=== PATIENT | female | born 1970 | race American Indian/Alaskan Native ===

== ENCOUNTER 2018-03-21 11:48 | Emergency (ER) | payer SELFPAY ==
[2018-03-21] MEDS ORDERED: NORVASC PO ONE (13:13)
--- NOTE | 2018-03-21 13:16 | Emergency Department Report ---
ED General Adult HPI - General Chief complaint: High BP Stated complaint: EYE BLURRY/HYPERTENTION Time Seen by Provider: 03/21/18 12:56 Source: patient, EMS (ems notes not available at time of chart dictation), RN notes reviewed Mode of arrival: Wheelchair Limitations: Physical Limitation - History of Present Illness Initial comments: This is a 47-year-old female, not known to this provider previously, recently moved here from [place], reports a history of obesity, hypertension, diabetes, and left-sided foot drop 1 year. The patient presents to the ER with a primary complaint of painless left-sided loss of peripheral vision, present for 3-4 weeks. To me, denies sudden or thunderclap headache, neck pain, chest pain, abdominal pain, shortness of breath. Has chronic left-sided foot drop, and resultant left intermittent knee discomfort. This foot drop is present for over a year, and she reports that it was evaluated in [place] with x-rays and an MRI. She believes the results of these tests were "negative." She reports that she has access to her blood pressure medication, valsartan, 40 mg daily, as well as Lantus, and reports sporadic compliance. She specifically indicates that she does not need a refill. Visual symptoms are constant, painless, do not radiate anywhere, did not have exacerbating or relieving factors. She reports that she applied for Medicaid insurance about a month ago, and was told that it would take 30-45 days for her insurance to kick in. -: Gradual, week(s) Location: eyes (left) Radiation: non-radiation Consistency: constant Improves with: none Worsens with: none Associated Symptoms: weakness (chronic left-sided foot drop). denies: confusion, chest pain, cough, diaphoresis, fever/chills, loss of appetite, malaise, nausea/vomiting, rash, seizure, shortness of breath, syncope - Related Data Home Medications Medication Instructions Recorded Confirmed Last Taken Insulin Glargine,Hum.rec.anlog 50 unit SQ HS 03/21/18 03/21/18 Unknown [Lantus] Valsartan [Diovan] 40 mg PO DAILY 03/21/18 03/21/18 Unknown Allergies Allergy/AdvReac Type Severity Reaction Status Date / Time Penicillins Allergy Rash Verified 01/12/19 12:20 ED Review of Systems ROS: Stated complaint: EYE BLURRY/HYPERTENTION Other details as noted in HPI Constitutional: denies: malaise Eyes: vision change. denies: eye pain ENT: denies: ear pain Respiratory: denies: cough Cardiovascular: denies: chest pain Gastrointestinal: denies: abdominal pain Genitourinary: denies: dysuria Musculoskeletal: arthralgia. denies: back pain Neurological: abnormal gait (chronic left-sided foot drop 1 year). denies: weakness Psychiatric: anxiety ED Past Medical Hx - Past Medical History Previous Medical History?: Yes Hx Hypertension: Yes Hx Diabetes: Yes Additional medical history: high cholesterol - Surgical History Past Surgical History?: No - Social History Smoking Status: Never Smoker Substance Use Type: Alcohol - Medications Home Medications: Home Medications Medication Instructions Recorded Confirmed Last Taken Type Insulin Glargine,Hum.rec.anlog 50 unit SQ HS 03/21/18 03/21/18 Unknown History [Lantus] Valsartan [Diovan] 40 mg PO DAILY 03/21/18 03/21/18 Unknown History ED Physical Exam - General Limitations: Physical Limitation General appearance: alert, anxious, obese - Head Head exam: Present: atraumatic, normocephalic - Eye Eye exam: Present: normal appearance, PERRL, EOMI, other (visual acuity intact to finger counting, color perception, reading at a close distance). Absent: nystagmus - ENT ENT exam: Present: normal exam, normal orophraynx, mucous membranes moist, normal external ear exam - Neck Neck exam: Present: normal inspection, full ROM. Absent: tenderness, meningismus - Respiratory Respiratory exam: Present: normal lung sounds bilaterally. Absent: respiratory distress - Cardiovascular Cardiovascular Exam: Present: regular rate, normal rhythm, normal heart sounds. Absent: bradycardia, tachycardia, irregular rhythm, systolic murmur, diastolic murmur, rubs, gallop - GI/Abdominal GI/Abdominal exam: Present: soft. Absent: distended, tenderness, guarding, rebound, rigid, pulsatile mass - Extremities Exam Extremities exam: Present: normal inspection, full ROM, other (2+ pulses noted in the bilateral upper, lower extremities. Compartments soft. No long bony tenderness. The pelvis is stable.). Absent: calf tenderness - Back Exam Back exam: Present: normal inspection, full ROM. Absent: tenderness, CVA tenderness (R), paraspinal tenderness, vertebral tenderness - Neurological Exam Neurological exam: Present: alert, oriented X3, abnormal gait (the patient walks with a slight limp secondary to chronic left-sided foot drop), motor sensory deficit (5 and a 5 strength, intact, to 4 extremities, with the exception of left foot flexion and extension. 3 out of 5 strength in these modalities in the left foot. Sensation intact to light touch in 4 extremities) - Psychiatric Psychiatric exam: Present: anxious - Skin Skin exam: Present: warm, dry, intact, normal color. Absent: rash ED Course Vital Signs 03/21/18 03/21/18 03/21/18 12:10 13:16 13:30 Temperature 98.5 F Pulse Rate 97 H 100 H Respiratory 20 15 Rate Blood Pressure 200/105 202/99 198/100 O2 Sat by Pulse 100 100 Oximetry 03/21/18 03/21/18 03/21/18 14:00 14:30 15:00 Temperature Pulse Rate 89 90 89 Respiratory 12 13 13 Rate Blood Pressure 189/93 179/92 179/92 O2 Sat by Pulse 100 100 100 Oximetry 03/21/18 15:30 Temperature Pulse Rate 89 Respiratory 14 Rate Blood Pressure 179/84 O2 Sat by Pulse 100 Oximetry ED Medical Decision Making - Lab Data Result diagrams: 03/21/18 13:22 Vital Signs 03/21/18 03/21/18 03/21/18 12:10 13:16 13:30 Temperature 98.5 F Pulse Rate 97 H 100 H Respiratory 20 15 Rate Blood Pressure 200/105 202/99 198/100 O2 Sat by Pulse 100 100 Oximetry 03/21/18 03/21/18 03/21/18 14:00 14:30 15:00 Temperature Pulse Rate 89 90 89 Respiratory 12 13 13 Rate Blood Pressure 189/93 179/92 179/92 O2 Sat by Pulse 100 100 100 Oximetry 03/21/18 15:30 Temperature Pulse Rate 89 Respiratory 14 Rate Blood Pressure 179/84 O2 Sat by Pulse 100 Oximetry Lab Results 03/21/18 Range/Units 13:22 Sodium 139 (137-145) mmol/L Potassium 3.7 (3.6-5.0) mmol/L Chloride 103.4 (98-107) mmol/L Carbon Dioxide 26 (22-30) mmol/L Anion Gap 13 mmol/L BUN 22 H (7-17) mg/dL Creatinine 1.2 (0.7-1.2) mg/dL Estimated GFR 59 ml/min BUN/Creatinine Ratio 18 % Glucose 307 H (65-100) mg/dL Calcium 8.5 (8.4-10.2) mg/dL Magnesium 1.70 (1.7-2.3) mg/dL Total Creatine Kinase 142 H (30-135) units/L - Radiology Data Radiology results: report reviewed, image reviewed Noncontrast CT scan of the brain is negative for acute disease - Medical Decision Making Differential diagnosis, including but not limited to: Chronic left-sided foot drop, diabetic retinopathy, hypertensive retinopathy, medication noncompliance Assessment and plan: 47-year-old female with primary complaint of left visual peripheral field deficits, only on the left eye, describes temporal and nasal decrease in maciel, visual acuity reviewed and appreciated, patient also has chronic left-sided foot drop. Foot drop present for 1 year. She can follow up with an outpatient primary care doctor or neurologist for this. Elevated blood pressure reviewed and appreciated. She may follow up with an outpatient primary care doctor for this. Given that visual symptoms present for 3 weeks, patient may follow-up with an outpatient parking officer. I have counseled the patient to remain compliant with her medications, and to closely follow-up and outpatient ophthalmology specialist for further evaluation and management. Critical care attestation.: If time is entered above; I have spent that time in minutes in the direct care of this critically ill patient, excluding procedure time. ED Disposition Clinical Impression: Elevated blood pressure reading, Visual disturbance, Foot drop, left Disposition: DC-01 TO HOME OR SELFCARE Is pt being admited?: No Does the pt Need Aspirin: No Condition: Good Additional Instructions: Follow-up with an ophthalmology specialist within the next 5-[address] Spicer is a local ophthalmology physician. Continue current outpatient medications. Follow up with the primary care doctor within the next month for elevated blood pressure, diabetes, and left-sided foot drop. Alternatively, patient may follow up with the listed neurology specialist within the next month for foot drop. Please return to the ER right away with lethargy, irritability, projectile vomiting, change in mental status, confusion, inability to speak, inability to breathe, new, worsening or different symptoms. I recommend the patient participate in physical activities as tolerated, attempt weight loss, and modified diets, in accordance with the [place] [employer]'s website recommendations on diabetic family diets (this can be looked up online) to facilitate weight loss, and improved health benefits. Long-term complications of elevated blood pressure and blood sugar include stroke, disability, heart attack, paralysis, loss of quality of life. Referrals: [facility] [Provider Group] - as needed JODI HUDSON MD [Staff Physician] - as needed HOLLIS LINARES MD [Staff Physician] - 7-10 days
[2018-03-21 13:51] LABS: Calcium 8.5 mg/dL (8.4-10.2)
--- NOTE | 2018-03-21 14:03 | Cat Scan Report ---
FINAL REPORT EXAM: CT HEAD/BRAIN WO CON HISTORY: high htn blurry vsision TECHNIQUE: CT of the head was performed. No intravenous contrast was administered. PRIORS: None. FINDINGS: There is no evidence of intracranial hemorrhage. There is no edema, mass effect or midline shift. There are no abnormal extra-axial fluid collections. The ventricles are appropriate for brain volume. There is no skull fracture seen. The visualized aspects of the sinuses are clear. IMPRESSION: There is no acute intracranial abnormality identified.
[2018-03-21 15:39] VITALS: BP 179/84
== END 2018-03-21 16:14 | disposition home or self-care (01) ==
LOC: ED 11:48
DX: H53.8 Other visual disturbances (principal); M21.372 Foot drop, left foot; I10 Essential (primary) hypertension; E11.9 Type 2 diabetes mellitus without complications; E78.00 Pure hypercholesterolemia, unspecified; Z79.4 Long term (current) use of insulin; Z88.0 Allergy status to penicillin
CPT/HCPCS: 36415; 70450; 80048; 82550; 83735

== ENCOUNTER 2018-04-16 21:01 | Emergency (ER) | payer SELFPAY ==
--- NOTE | 2018-04-16 21:28 | Emergency Department Report ---
Blank Doc - Documentation Documentation: 47 y.o. female presents with vaginal bleeding and pelvic cramping that started a few hours ago. LMP 04/06/2018. Patient reports she is passing large clots. Here period ended one week ago. Denies past history of abnormal uterine bleeding or menses. States changing 4 pads in 1-2 hours. Labs ordered [facility] for evaluation
[2018-04-16 22:14] LABS: Basophils % (Auto) 0.1 % (0.0-1.8); Eosinophils # (Auto) 0.1 K/mm3 (0.0-0.4); Eosinophils % (Auto) 0.5 % (0.0-4.3); Hematocrit 29.7 % (30.3-42.9); Hemoglobin 9.6 gm/dl (10.1-14.3); Lymphocytes % (Auto) 22.3 % (13.4-35.0); Mean Corpuscular HGB Conc 32 % (30-34); Mean Corpuscular Volume 80 fl (79-97); Monocytes # (Auto) 0.8 K/mm3 (0.0-0.8); Monocytes % (Auto) 6.3 % (0.0-7.3); Platelet Count 328 K/mm3 (140-440); Red Cell Distribution Width 15.4 % (13.2-15.2)
[2018-04-16 22:46] VITALS: BP 141/71
[2018-04-16 23:21] LABS: Bilirubin,Urine NEG (Negative); Blood,Urine LG (Negative); Color,Urine Red (Yellow); Protein,Urine >500 mg/dL (Negative); Urobilinogen,Urine < 2.0 mg/dL (<2.0)
[2018-04-16 23:22] LABS: RBC,Urine > 182.0 /HPF (0.0-6.0)
--- NOTE | 2018-04-17 01:23 | Ultrasound Report ---
FINAL REPORT EXAM: US PELVIC COMPLETE HISTORY: pelvic pain and abnormal uterine bleeding TECHNIQUE: Real-time sonography was performed of the pelvis transabdominally. Images are submitted f or interpretation. PRIORS: None. FINDINGS: There is and anterior myometrial fibroid measuring 3.1 x 3.2 x 3.2 cm. It abuts and displaces the end ometrium. The uterus measures 9.7 x 5.7 x 6.6 cm. The endometrial stripe measures 6 mm. There are nab othian cysts in the cervix. The right ovary appears normal measuring 3.0 x 1.7 x 1.9 cm. A prominent follicle is identified in th e ovary. The left ovary appears normal measuring 2.9 x 1.4 x 1.5 cm. Color Doppler evaluation of the ovaries shows flow bilaterally. There is no free pelvic fluid. IMPRESSION: 3.2 cm anterior myometrial fibroid that abuts and displaces the endometrium. Otherwise, normal pelvic ultrasound.
--- NOTE | 2018-04-17 01:23 | Ultrasound Report ---
FINAL REPORT EXAM: US TRANSVAGINAL HISTORY: pelvic pain and abnormal uterine bleeding TECHNIQUE: Real-time sonography was performed of the pelvis endovaginally. Images are submitted for interpretation. PRIORS: None. FINDINGS: There is and anterior myometrial fibroid measuring 3.1 x 3.2 x 3.2 cm. It abuts and displaces the end ometrium. The uterus measures 9.7 x 5.7 x 6.6 cm. The endometrial stripe measures 6 mm. There are nab othian cysts in the cervix. The right ovary appears normal measuring 3.0 x 1.7 x 1.9 cm. A prominent follicle is identified in th e ovary. The left ovary appears normal measuring 2.9 x 1.4 x 1.5 cm. Color Doppler evaluation of the ovaries shows flow bilaterally. There is no free pelvic fluid. IMPRESSION: 3.2 cm anterior myometrial fibroid that abuts and displaces the endometrium. Otherwise, normal pelvic ultrasound.
--- NOTE | 2018-04-17 01:42 | Emergency Department Report ---
ED Female HPI - General Chief complaint: Vaginal Bleeding Stated complaint: HEAVY BLEEDING CRAMPS CLOTS Time Seen by Provider: 04/16/18 21:28 Source: patient Mode of arrival: Ambulatory Limitations: No Limitations - History of Present Illness Initial comments: 47-year-old female whose [facility] department complaining of abnormal periods with heavy bleeding in between her menstrual cycles for the last couple cycles. She reports having heavy clots as well, but has no known history of an pregnancies, and endometriosis, any hormonal imbalances, and uterine fibroids. She reports no nausea, vomiting, fever, chills, sweats, chest pain, palpitations. MD Complaint: vaginal bleeding, pelvic pain -: Gradual Location: suprapubic Radiation: non-radiating Severity: mild Quality: dull Consistency: constant Improves with: none Worsens with: none Are you Now?: No Associated Symptoms: vaginal bleeding. denies: abdominal pain, nausea/vomiting, headaches, loss of appetite, dysuria, hematuria, shortness of breath - Related Data Sexually active: Yes Home Medications Medication Instructions Recorded Confirmed Last Taken Insulin Glargine,Hum.rec.anlog 50 unit SQ HS 03/21/18 03/21/18 Unknown [Lantus] Valsartan [Diovan] 40 mg PO DAILY 03/21/18 03/21/18 Unknown Previous Rx's Medication Instructions Recorded Last Taken Type Ketorolac [Toradol] 10 mg PO Q6H PRN #20 tablet 04/17/18 Unknown Rx Allergies Allergy/AdvReac Type Severity Reaction Status Date / Time Penicillins Allergy Rash Verified 03/21/18 12:20 ED Review of Systems ROS: Stated complaint: HEAVY BLEEDING CRAMPS CLOTS Other details as noted in HPI Constitutional: denies: chills, fever Eyes: denies: eye pain, eye discharge, vision change ENT: denies: ear pain, throat pain Respiratory: denies: cough, shortness of breath, wheezing Cardiovascular: denies: chest pain, palpitations Endocrine: no symptoms reported Gastrointestinal: denies: abdominal pain, nausea, diarrhea Genitourinary: denies: urgency, dysuria, discharge Musculoskeletal: denies: back pain, joint swelling, arthralgia Skin: denies: rash, lesions Neurological: denies: headache, weakness, paresthesias Psychiatric: denies: anxiety, depression Hematological/Lymphatic: denies: easy bleeding, easy bruising ED Past Medical Hx - Past Medical History Hx Hypertension: Yes Hx Diabetes: Yes Additional medical history: high cholesterol - Surgical History Past Surgical History?: Yes Additional Surgical History: . tubal ligation. cyst removal - Social History Smoking Status: Never Smoker Substance Use Type: Alcohol - Medications Home Medications: Home Medications Medication Instructions Recorded Confirmed Last Taken Type Insulin Glargine,Hum.rec.anlog 50 unit SQ HS 03/21/18 03/21/18 Unknown History [Lantus] Valsartan [Diovan] 40 mg PO DAILY 03/21/18 03/21/18 Unknown History Ketorolac [Toradol] 10 mg PO Q6H PRN #20 tablet 04/17/18 Unknown Rx ED Physical Exam - General Limitations: No Limitations General appearance: alert, in no apparent distress - Head Head exam: Present: atraumatic, normocephalic - Eye Eye exam: Present: normal appearance, PERRL, EOMI Pupils: Present: normal accommodation - ENT ENT exam: Present: normal exam, mucous membranes moist, TM's normal bilaterally - Neck Neck exam: Present: normal inspection - Respiratory Respiratory exam: Present: normal lung sounds bilaterally. Absent: respiratory distress - Cardiovascular Cardiovascular Exam: Present: regular rate, normal rhythm. Absent: systolic murmur, diastolic murmur, rubs, gallop - GI/Abdominal GI/Abdominal exam: Present: soft, normal bowel sounds. Absent: distended, hyperactive bowel sounds, hypoactive bowel sounds, mass, bruit, pulsatile mass - Extremities Exam Extremities exam: Present: normal inspection - Back Exam Back exam: Present: normal inspection - Neurological Exam Neurological exam: Present: alert, oriented X3 - Psychiatric Psychiatric exam: Present: normal affect, normal mood - Skin Skin exam: Present: warm, dry, intact, normal color. Absent: rash ED Course Vital Signs 04/16/18 04/16/18 04/16/18 21:19 21:28 22:44 Temperature 98.4 F 98.4 F 98.8 F Pulse Rate 97 H 98 H 93 H Respiratory 18 18 18 Rate Blood Pressure 170/95 Blood Pressure 170/95 141/71 [Right] O2 Sat by Pulse 99 99 100 Oximetry ED Medical Decision Making - Lab Data Result diagrams: 04/16/18 21:47 - Radiology Data Radiology results: report reviewed (the pelvic ultrasound showed a 3.2 cm anterior myometrial fibroid that abuts and displaces the endometrium.) Critical care attestation.: If time is entered above; I have spent that time in minutes in the direct care of this critically ill patient, excluding procedure time. ED Disposition Clinical Impression: Fibroid Disposition: DC- TO HOME OR SELFCARE Is pt being admited?: No Does the pt Need Aspirin: No Condition: Stable Instructions: Uterine Fibroids (ED) Prescriptions: Ketorolac [Toradol] 10 mg PO Q6H PRN #20 tablet PRN Reason: Pain Referrals: CARMELA ROSS DO [Primary Care Provider] - 3-5 Days LENNOX BRIONES MD [Staff Physician] - 3-5 Days
== END 2018-04-17 02:46 | disposition home or self-care (01) ==
LOC: ED 21:01
DX: D25.9 Leiomyoma of uterus, unspecified (principal); I10 Essential (primary) hypertension; E11.9 Type 2 diabetes mellitus without complications; E78.00 Pure hypercholesterolemia, unspecified; Z98.51 Tubal ligation status
CPT/HCPCS: 36415; 76830; 76856; 81001; 84702; 85025; 86850; 86900; 86901

== ENCOUNTER 2019-01-07 03:58 | Inpatient (IN) | payer OTHER ==
[2019-01-07 04:43] LABS: Basophils % (Auto) 0.4 % (0.0-1.8); Eosinophils # (Auto) 0.1 K/mm3 (0.0-0.4); Eosinophils % (Auto) 1.1 % (0.0-4.3); Hematocrit 22.3 % (30.3-42.9); Hemoglobin 7.2 gm/dl (10.1-14.3); Lymphocytes # (Auto) 2.5 K/mm3 (1.2-5.4); Lymphocytes % (Auto) 35.2 % (13.4-35.0); Mean Corpuscular HGB Conc 33 % (30-34); Mean Corpuscular Volume 77 fl (79-97); Monocytes # (Auto) 0.6 K/mm3 (0.0-0.8); Monocytes % (Auto) 7.8 % (0.0-7.3); Platelet Count 300 K/mm3 (140-440); Red Blood Count 2.89 M/mm3 (3.65-5.03); Red Cell Distribution Width 16.1 % (13.2-15.2)
[2019-01-07 05:06] LABS: Calcium 7.9 mg/dL (8.4-10.2)
[2019-01-07] MEDS ORDERED: INSULIN REGULAR, HUMAN 100 UNITS/1 ML IV ONE ×2 (06:38→07:53)
[2019-01-07] MEDS ORDERED: hydrALAZINE 20 MG/1 ML INJ IV ONE (06:38)
--- NOTE | 2019-01-07 06:53 | Emergency Department Report ---
HPI - General Chief Complaint: Arrhythmia/Palpitations Time Seen by Provider: 01/07/19 06:25 - HPI HPI: 48-year-old -[place] female presents to the emergency department with complaint of palpitations, leg swelling. She also presents with very elevated blood pressure. Patient says that the palpitations have been going on for the past few days. She denies any chest pain, shortness of breath, back pain, fever. The lower extremity swelling has been going on for many weeks. The patient has a history of hypertension, diabetes, high cholesterol. She moved here from [place] about 1 year ago and therefore does not have any local primary care physician. She says that she went back and saw her primary care physician in [place] a few months ago and the Diovan she was previously on was discontinued secondary to "I think it was affecting my kidneys." She is currently on hydralazine, spironolactone, and questionably a third blood pressure medication and she says that she is compliant. She also has a history of insulin dependent diabetes for which she takes some type of injectable insulin and she also says she is compliant with this. She denies any tobacco or illicit drug use. ED Past Medical Hx - Past Medical History Previous Medical History?: Yes Hx Hypertension: Yes Hx Diabetes: Yes Additional medical history: high cholesterol - Surgical History Past Surgical History?: Yes Additional Surgical History: . tubal ligation. cyst removal - Social History Smoking Status: Never Smoker Substance Use Type: None - Medications Home Medications: Home Medications Medication Instructions Recorded Confirmed Last Taken Type Insulin Glargine,Hum.rec.anlog 50 unit SQ HS 03/21/18 01/07/19 01/06/19 History [Lantus] ED Review of Systems ROS: Stated complaint: PALPITATION/LEG EDEMA Other details as noted in HPI Comment: All other systems reviewed and negative Constitutional: denies: chills, fever Eyes: denies: eye pain, vision change ENT: denies: ear pain, throat pain Respiratory: denies: cough, shortness of breath Cardiovascular: palpitations, edema. denies: chest pain Gastrointestinal: denies: abdominal pain, vomiting Genitourinary: denies: dysuria, discharge Musculoskeletal: denies: back pain, arthralgia Skin: denies: rash, lesions Neurological: denies: weakness, numbness Physical Exam - Physical Exam Vital Signs: Vital Signs 01/07/19 04:01 Temperature 99.0 F Pulse Rate 105 H Respiratory 17 Rate Blood Pressure 189/90 O2 Sat by Pulse 100 Oximetry Physical Exam: GENERAL: The patient is well-developed well-nourished. HENT: Normocephalic. Atraumatic. Patient has moist mucous membranes. EYES: Extraocular motions are intact. NECK: Supple. Trachea is midline. CHEST/LUNGS: Clear to auscultation. There is no respiratory distress noted. HEART/CARDIOVASCULAR: Regular. There is no tachycardia. There is no murmur. ABDOMEN: Abdomen is soft, nontender. Patient has normal bowel sounds. There is no abdominal distention. SKIN: Skin is warm and dry. There is mild to moderate nonpitting edema of the bilateral lower extremities. NEURO: The patient is awake, alert, and oriented. The patient is cooperative. The patient has no focal neurologic deficits. Normal speech. MUSCULOSKELETAL: There is no tenderness or deformity. There is no limitation range of motion. There is no evidence of acute injury. ED Course Vital Signs 01/07/19 04:01 Temperature 99.0 F Pulse Rate 105 H Respiratory 17 Rate Blood Pressure 189/90 O2 Sat by Pulse 100 Oximetry ED Medical Decision Making - Lab Data Result diagrams: 01/07/19 04:21 01/07/19 04:21 - EKG Data -: EKG Interpreted by Me EKG shows normal: sinus rhythm, axis, intervals, QRS complexes, ST-T waves Rate: tachycardia (101 bpm) - EKG Data When compared to previous EKG there are: previous EKG unavailable Interpretation: normal EKG - Radiology Data Radiology results: report reviewed, image reviewed interpreted by me: Chest x-ray does not show any acute process. There are no pleural effusions, obvious pneumonia and there is no pneumothorax. Ventilation perfusion scan is low probability for a pulmonary embolism. - Medical Decision Making This patient initially presented with complaints of palpitations and some lower extremity edema. However, during her ED course, the patient started complaining of some midsternal chest pain. EKG did not show any signs of ST elevation NC. Labs show renal insufficiency, elevated d-dimer level and an elevated troponin. The patient does appear to have some level of renal insufficiency as she says her primary care physician stopped her Diovan secondary to her kidney function. The patient's elevated troponin could be related to her chest pain and could be concerning for coronary artery disease, however it also could be elevated secondary to the renal insufficiency. I spoke with cardiology who agrees that the patient does not need any heparin at this time secondary to her anemia with a hemoglobin of 7.2. However cardiology will consult on this patient. VQ scan was low probability for a pulmonary wasn't. Patient accepted for admission by the hospitalist service. - Differential Diagnosis NC, PE, CHF, pneumonia Critical Care Time: No Critical care attestation.: If time is entered above; I have spent that time in minutes in the direct care of this critically ill patient, excluding procedure time. ED Disposition Clinical Impression: Hypertensive urgency, Acute chest pain, Elevated troponin, Renal insufficiency Uncontrolled diabetes mellitus Qualifiers: Diabetes mellitus type: type 1 Coma presence: without coma Disposition: 09 OP ADMIT IP TO THIS HOSP Is pt being admited?: Yes Condition: Stable Time of Disposition: 10:38
--- NOTE | 2019-01-07 07:05 | XRay Report ---
CHEST 1 VIEW INDICATION: SOB. COMPARISON: None FINDINGS: Support devices: None. Heart: Within normal limits. Lungs/Pleura: No acute air space or interstitial disease. Additional findings: None. IMPRESSION: 1. No acute findings. Signer Name: Paul Ochoa MD Signed: 01/07/2019 7:01 AM Workstation Name: [id number]
[2019-01-07] MEDS ORDERED: SODIUM CHLORIDE 0.9% 500 ML 500 ML IV SCH (08:00)
[2019-01-07] MEDS ORDERED: LABETALOL 20 MG/4 ML INJ IV ONE (08:55)
[2019-01-07 10:28] LABS: Chol/HDL Ratio 7.18 %
--- NOTE | 2019-01-07 12:09 | Consultation ---
<TEGAN DALTON - Last Filed: 01/07/19 12:04> History of Present Illness Consult date: 01/07/19 Consult reason: chest pain, elevated troponin History of present illness: This is a 48-year old woman who recently transition to this area from [place]. She gives a history of hypertension, diabetes and chronic renal failure. Patient denies prior cardiac history. Reports her latest cardiac workup with an echocardiogram and thallium stress test was done in September while living in [place]. Results are not available for review. Patient presents to the emergency department with complaints of palpitations and bilateral lower extremity edema. Patient reports LE edema has progressively worsened, now extending upwards to her thigh. Noted hypertensive on presentation. Labs measurement shows a hematocrit of 22.3 and a glucose greater than 400. Troponin of 0.16 likely in the setting of renal failure, creatinine of 2.0. An ECG is sinus rhythm, no acute ST or T wave changes. Medications and Allergies Allergies Allergy/AdvReac Type Severity Reaction Status Date / Time Penicillins Allergy Rash Verified 03/21/18 12:20 Home Medications Medication Instructions Recorded Confirmed Last Taken Type Aspirin EC [Halfprin EC] 81 mg PO QDAY #30 tablet. 01/09/19 Unknown Rx AtorvaSTATin [Lipitor] 20 mg PO QHS #30 01/09/19 Unknown Rx Carvedilol [Coreg] 6.25 mg PO BID #60 01/09/19 Unknown Rx Insulin Glargine,Hum.rec.anlog 25 unit SQ HS 30 Days 01/09/19 01/08/19 Unknown Rx [Basaglar Kwikpen U-100] Sitagliptin Phosphate [Januvia] 100 mg PO DAILY #30 01/09/19 Unknown Rx amLODIPine 10 mg PO QDAY #30 tablet 01/09/19 Unknown Rx hydrALAZINE [Apresoline TAB] 50 mg PO BID #60 01/09/19 Unknown Rx Active Meds: Active Medications Aspirin (Ecotrin) 325 mg PO QDAY [facility] Atorvastatin Calcium (Lipitor) 80 mg PO QHS [facility] Carvedilol (Coreg) 3.125 mg PO BID [facility] Insulin Glargine (Lantus) 20 units SUB-Q HS [facility] Morphine Sulfate (Morphine) 2 mg IV Q5MIN PRN PRN Reason: Chest Pain unrelieved by NTG Pantoprazole Sodium (Protonix) 40 mg PO QDAY [facility] Sodium Chloride (Sodium Chloride Flush Syringe 10 Ml) 10 ml IV PRN PRN PRN Reason: LINE FLUSH Zolpidem Tartrate (Ambien) 5 mg PO QHS PRN PRN Reason: Sleep Physical Examination Vital Signs Temp Pulse Resp BP Pulse Ox 99.0 F 105 H 17 189/90 100 01/07/19 04:01 01/07/19 04:01 01/07/19 04:01 01/07/19 04:01 01/07/19 04:01 General appearance: no acute distress HEENT: Positive: PERRL Neck: Positive: trachea midline Cardiac: Positive: Reg Rate and Rhythm Lungs: Positive: Decreased Breath Sounds Neuro: Positive: Grossly Intact Extremities: Present: +3 Edema Results 01/07/19 04:21 01/07/19 04:21 Lipids 01/07/19 Range/Units 09:16 Triglycerides 202 H (2-149) mg/dL Cholesterol 316 H (50-199) mg/dL HDL Cholesterol 44 (40-59) mg/dL Cholesterol/HDL Ratio 7.18 % CBC 01/07/19 Range/Units 04:21 WBC 7.2 (4.5-11.0) K/mm3 RBC 2.89 L (3.65-5.03) M/mm3 Hgb 7.2 L (10.1-14.3) gm/dl Hct 22.3 L (30.3-42.9) % Plt Count 300 (140-440) K/mm3 Lymph # 2.5 (1.2-5.4) K/mm3 [place] # 0.6 (0.0-0.8) K/mm3 Eos # 0.1 (0.0-0.4) K/mm3 Baso # 0.0 (0.0-0.1) K/mm3 Comprehensive Metabolic Panel 01/07/19 Range/Units 04:21 Sodium 136 L (137-145) mmol/L Potassium 3.5 L (3.6-5.0) mmol/L Chloride 102.9 (98-107) mmol/L Carbon Dioxide 24 (22-30) mmol/L BUN 26 H (7-17) mg/dL Creatinine 2.0 H (0.7-1.2) mg/dL Glucose 453 H (65-100) mg/dL Calcium 7.9 L (8.4-10.2) mg/dL <MACIEL,CHITURU - Last Filed: 01/11/19 14:00> Physical Examination Vital Signs Temp Pulse Resp BP Pulse Ox 99.0 F 105 H 17 189/90 100 01/07/19 04:01 01/07/19 04:01 01/07/19 04:01 01/07/19 04:01 01/07/19 04:01 Results 01/09/19 12:55 01/09/19 04:45 Assessment and Plan - Patient Problems (1) Atypical chest pain Status: Acute Plan to address problem: Patient's chest pain is atypical, she had extensive cardiac ischemic workup in the past several weeks where she lived in [place]. ECG, chest x-ray and cardiac enzymes so far unremarkable. We will request her previous cardiac records for further assessment, otherwise no significant cardiac workup is indicated. (2) Severe anemia Status: Acute Plan to address problem: Most significant objective finding on this presentation is severe anemia with hematocrit of 22. I will defer to internal medicine and gastroenterology for further workup of atypical chest pain associated with severe anemia. The presentation will warrant aggressive upper GI evaluation.
--- NOTE | 2019-01-07 12:41 | History and Physical Report ---
History of Present Illness Date of examination: 01/07/19 Date of admission: 01/07/19 10:38 Chief complaint: palpitation, leg swelling History of present illness: 48-year-old -[place] female presents to the emergency department with complaint of palpitations, leg swelling. She also presents with very elevated blood pressure. Patient says that the palpitations have been going on for the past few days. She denies any chest pain, shortness of breath, back pain, fever. The lower extremity swelling has been going on for many weeks. The patient has a history of hypertension, diabetes, high cholesterol. She moved here from [place] about 1 year ago and therefore does not have any local primary care physician. She says that she went back and saw her primary care physician in [place] a few months ago and the Diovan she was previously on was discontinued secondary to "I think it was affecting my kidneys." She is currently on hydralazine, spironolactone, and questionably a third blood pressure medication and she says that she is compliant. She also has a history of insulin dependent diabetes for which she takes some type of injectable insulin and she also says she is compliant with this. She denies any tobacco or illicit drug use. Past History Past Medical History: anemia, diabetes, hypertension, renal failure Past Surgical History: Other (. tubal ligation. cyst removal) Social history: denies: smoking, alcohol abuse, IV drug use Family history: diabetes, hypertension Medications and Allergies Allergies Allergy/AdvReac Type Severity Reaction Status Date / Time Penicillins Allergy Rash Verified 03/21/18 12:20 Home Medications Medication Instructions Recorded Confirmed Last Taken Type Atenolol [Tenormin] 50 mg PO DAILY 01/08/19 01/08/19 Unknown History AtorvaSTATin [Lipitor] 20 mg PO QHS 01/08/19 01/08/19 Unknown History Carvedilol [Coreg] 6.25 mg PO BID 01/08/19 01/08/19 Unknown History Chlorthalidone [Thalitone] 25 mg PO QDAY 01/08/19 01/08/19 Unknown History Furosemide [Lasix TAB] 80 mg PO DAILY 01/08/19 01/08/19 Unknown History Insulin Glargine,Hum.rec.anlog 50 unit SQ HS 01/08/19 01/08/19 Unknown History [Jelaniaglcaden Reed U-100] Sitagliptin Phosphate [Januvia] 100 mg PO DAILY 01/08/19 01/08/19 Unknown History Spironolactone [Aldactone] 12.5 mg PO QDAY 01/08/19 01/08/19 Unknown History hydrALAZINE [Apresoline] 25 mg PO BID 01/08/19 01/08/19 Unknown History Active Meds: Active Medications Aspirin (Ecotrin) 325 mg PO QDAY [facility] Atorvastatin Calcium (Lipitor) 80 mg PO QHS [facility] Carvedilol (Coreg) 3.125 mg PO BID [facility] Insulin Glargine (Lantus) 20 units SUB-Q HS [facility] Morphine Sulfate (Morphine) 2 mg IV Q5MIN PRN PRN Reason: Chest Pain unrelieved by NTG Pantoprazole Sodium (Protonix) 40 mg PO QDAY [facility] Sodium Chloride (Sodium Chloride Flush Syringe 10 Ml) 10 ml IV PRN PRN PRN Reason: LINE FLUSH Zolpidem Tartrate (Ambien) 5 mg PO QHS PRN PRN Reason: Sleep Exam - Constitutional Vitals: Temp Pulse Resp BP Pulse Ox 97.4 F L 99 H 11 L 162/79 100 01/07/19 07:15 01/07/19 12:00 01/07/19 12:00 01/07/19 12:00 01/07/19 12:00 Results - Labs CBC & Chem 7: 01/09/19 12:55 01/09/19 04:45 Labs: Abnormal lab results 01/07/19 01/07/19 01/07/19 Range/Units 04:19 04:21 04:21 RBC 2.89 L (3.65-5.03) M/mm3 Hgb 7.2 L (10.1-14.3) gm/dl Hct 22.3 L (30.3-42.9) % MCV 77 L (79-97) fl MCH 25 L (28-32) pg RDW 16.1 H (13.2-15.2) % Lymph % (Auto) 35.2 H (13.4-35.0) % [place] % (Auto) 7.8 H (0.0-7.3) % D-Dimer (0-234) ng/mlDDU Sodium 136 L (137-145) mmol/L Potassium 3.5 L (3.6-5.0) mmol/L BUN 26 H (7-17) mg/dL Creatinine 2.0 H (0.7-1.2) mg/dL Glucose 453 H (65-100) mg/dL POC Glucose 450 H (70-105) Calcium 7.9 L (8.4-10.2) mg/dL Troponin T (0.00-0.029) ng/mL NT-Pro-B Natriuret Pep (0-450) pg/mL Triglycerides (2-149) mg/dL Cholesterol (50-199) mg/dL LDL Cholesterol Direct (50-130) mg/dL TSH (0.270-4.200) mlU/mL 01/07/19 01/07/19 01/07/19 Range/Units 06:47 06:47 06:47 RBC (3.65-5.03) M/mm3 Hgb (10.1-14.3) gm/dl Hct (30.3-42.9) % MCV (79-97) fl MCH (28-32) pg RDW (13.2-15.2) % Lymph % (Auto) (13.4-35.0) % [place] % (Auto) (0.0-7.3) % D-Dimer 1902.48 H (0-234) ng/mlDDU Sodium (137-145) mmol/L Potassium (3.6-5.0) mmol/L BUN (7-17) mg/dL Creatinine (0.7-1.2) mg/dL Glucose (65-100) mg/dL POC Glucose (70-105) Calcium (8.4-10.2) mg/dL Troponin T (0.00-0.029) ng/mL NT-Pro-B Natriuret Pep 1794 H (0-450) pg/mL Triglycerides (2-149) mg/dL Cholesterol (50-199) mg/dL LDL Cholesterol Direct (50-130) mg/dL TSH 4.640 H (0.270-4.200) mlU/mL 01/07/19 01/07/19 01/07/19 Range/Units 07:46 08:44 09:16 RBC (3.65-5.03) M/mm3 Hgb (10.1-14.3) gm/dl Hct (30.3-42.9) % MCV (79-97) fl MCH (28-32) pg RDW (13.2-15.2) % Lymph % (Auto) (13.4-35.0) % [place] % (Auto) (0.0-7.3) % D-Dimer (0-234) ng/mlDDU Sodium (137-145) mmol/L Potassium (3.6-5.0) mmol/L BUN (7-17) mg/dL Creatinine (0.7-1.2) mg/dL Glucose (65-100) mg/dL POC Glucose 305 H 196 H (70-105) Calcium (8.4-10.2) mg/dL Troponin T 0.160 H* (0.00-0.029) ng/mL NT-Pro-B Natriuret Pep (0-450) pg/mL Triglycerides 202 H (2-149) mg/dL Cholesterol 316 H (50-199) mg/dL LDL Cholesterol Direct 255 H (50-130) mg/dL TSH (0.270-4.200) mlU/mL 01/07/19 Range/Units 11:13 RBC (3.65-5.03) M/mm3 Hgb (10.1-14.3) gm/dl Hct (30.3-42.9) % MCV (79-97) fl MCH (28-32) pg RDW (13.2-15.2) % Lymph % (Auto) (13.4-35.0) % [place] % (Auto) (0.0-7.3) % D-Dimer (0-234) ng/mlDDU Sodium (137-145) mmol/L Potassium (3.6-5.0) mmol/L BUN (7-17) mg/dL Creatinine (0.7-1.2) mg/dL Glucose (65-100) mg/dL POC Glucose 308 H (70-105) Calcium (8.4-10.2) mg/dL Troponin T (0.00-0.029) ng/mL NT-Pro-B Natriuret Pep (0-450) pg/mL Triglycerides (2-149) mg/dL Cholesterol (50-199) mg/dL LDL Cholesterol Direct (50-130) mg/dL TSH (0.270-4.200) mlU/mL Assessment and Plan Possible acute CHF exacerbation Acute on chronic blood loss anemia CASSY on CKD Accelerated HTN
[2019-01-07] MEDS ORDERED: CARVEDILOL 3.125 MG TAB ONE (12:50)
[2019-01-07] MEDS: CARVEDILOL 3.125 MG TAB PO SCH ×2 (12:51→22:33)
--- NOTE | 2019-01-07 13:51 | Nuclear Medicine Report ---
TECHNICAL DATA: Inhaled administration followed by immediate static images of chest in multiple projections coordin ed with breathing instructions. Followed by immediate static images of chest in multiple projections post I.V. injection. 17.4 millicuries of 133 Xenon is administered by inhalation. Pulmonary wash-in, equilibrium, and washout phases are performed. Then, 5.0 millicuries of 99m Tc MAA is administered intravenously. FINDINGS: Chest imaging study same date is compared The ventilation scan is normal without evidence of delayed washout. The perfusion scan demonstrates h omogeneous uptake without evidence of segmental or subsegmental defects. IMPRESSION: Normal lung scan. Signer Name: Doug Bianchi MD Signed: 01/07/2019 1:47 PM Workstation Name: [id number]
[2019-01-07] MEDS: MORPHINE 2 MG/1 ML INJ IV PRN (14:49)
[2019-01-07 17:06] LABS: Calcium 7.7 mg/dL (8.4-10.2)
[2019-01-07 17:30] LABS: Basophils % (Auto) 0.5 % (0.0-1.8); Eosinophils % (Auto) 0.4 % (0.0-4.3); Hematocrit 21.1 % (30.3-42.9); Hemoglobin 6.9 gm/dl (10.1-14.3); Lymphocytes # (Auto) 2.3 K/mm3 (1.2-5.4); Lymphocytes % (Auto) 25.2 % (13.4-35.0); Mean Corpuscular HGB Conc 33 % (30-34); Mean Corpuscular Volume 77 fl (79-97); Monocytes # (Auto) 0.5 K/mm3 (0.0-0.8); Platelet Count 288 K/mm3 (140-440); Red Blood Count 2.74 M/mm3 (3.65-5.03); Red Cell Distribution Width 16.1 % (13.2-15.2)
[2019-01-07] MEDS ORDERED: hydrALAZINE 20 MG/1 ML INJ IV SCH (22:00)
[2019-01-07] MEDS: ZOLPIDEM 5 MG TAB PO PRN (22:33)
[2019-01-07] MEDS: INSULIN GLARGINE 100 UNITS/ML SUB-Q SCH (22:33)
[2019-01-07] MEDS: INSULIN REGULAR, HUMAN 100 UNITS/1 ML SUB-Q SCH (22:36)
[2019-01-07] MEDS ORDERED: hydrALAZINE 20 MG/1 ML INJ IV PRN (23:00)
[2019-01-08] MEDS ORDERED: SODIUM CHLORIDE 0.9% 500 ML 500 ML IV NR (09:00)
--- NOTE | 2019-01-08 09:44 | Progress Note ---
<TEGAN DALTON - Last Filed: 01/08/19 13:35> Assessment and Plan Volume overload Acute on chronic renal failure Severe anemia Hypertension, uncontrolled Diabetes, uncontrolled Elevated troponin, nonspecific likely in the setting of renal failure. pt denies chest pain. Pt reports negative cardiac workup in [place] in September. We will obtain an echocardiogram for LVEF assessment. Optimal blood pressure management. Management of severe anemia, renal failure and uncontrolled diabetes as per hospitalist, GI and nephrology. Subjective Date of service: 01/08/19 Interval history: Noted with an H&H of 6.9/21.1 and a creatinine of 2.1 on today's labs. Patient denies chest pain and shortness of breath. Objective Vital Signs Temp Pulse Resp BP Pulse Ox 01/08/19 08:09 97.9 F 95 H 18 167/72 100 01/08/19 04:40 97.8 F 97 H 20 161/87 99 01/08/19 04:00 95 H 01/07/19 23:40 98.5 F 103 H 16 142/81 100 01/07/19 20:31 99 H 01/07/19 19:42 98.4 F 101 H 16 170/91 100 01/07/19 15:24 98.0 F 100 H 18 164/84 100 01/07/19 15:00 97 01/07/19 12:51 107 H 158/71 01/07/19 12:50 158/71 01/07/19 12:31 115 H 01/07/19 12:00 99 H 11 L 162/79 100 01/07/19 11:46 103 H 9 L 162/79 100 01/07/19 11:30 94 H 12 157/80 100 01/07/19 11:16 92 H 11 L 157/80 100 01/07/19 11:00 97 H 11 L 163/76 100 01/07/19 10:46 94 H 9 L 163/76 100 01/07/19 10:30 90 12 163/76 100 01/07/19 10:16 91 H 11 L 163/76 100 01/07/19 10:00 90 12 163/76 100 01/07/19 09:46 90 11 L 162/75 100 - Physical Examination General: No Apparent Distress HEENT: Positive: PERRL Neck: Positive: trachea midline Cardiac: Positive: Reg Rate and Rhythm Lungs: Positive: Decreased Breath Sounds Neuro: Positive: Grossly Intact Extremities: Present: edema - Labs and Meds Lipids 01/07/19 Range/Units 09:16 Triglycerides 202 H (2-149) mg/dL Cholesterol 316 H (50-199) mg/dL HDL Cholesterol 44 (40-59) mg/dL Cholesterol/HDL Ratio 7.18 % CBC 01/07/19 Range/Units 16:25 WBC 9.1 (4.5-11.0) K/mm3 RBC 2.74 L (3.65-5.03) M/mm3 Hgb 6.9 L (10.1-14.3) gm/dl Hct 21.1 L (30.3-42.9) % Plt Count 288 (140-440) K/mm3 Lymph # 2.3 (1.2-5.4) K/mm3 [place] # 0.5 (0.0-0.8) K/mm3 Eos # 0.0 (0.0-0.4) K/mm3 Baso # 0.0 (0.0-0.1) K/mm3 Comprehensive Metabolic Panel 01/07/19 Range/Units 16:25 Sodium 136 L (137-145) mmol/L Potassium 3.4 L (3.6-5.0) mmol/L Chloride 104.5 (98-107) mmol/L Carbon Dioxide 22 (22-30) mmol/L BUN 27 H (7-17) mg/dL Creatinine 2.1 H (0.7-1.2) mg/dL Glucose 388 H (65-100) mg/dL Calcium 7.7 L (8.4-10.2) mg/dL <ESCOBAR MCKAY - Last Filed: 01/08/19 20:31> Assessment and Plan I have seen and evaluated the patient and agree with the assessment and plan. Objective Vital Signs Temp Pulse Resp BP Pulse Ox 01/08/19 19:40 98.5 F 01/08/19 19:39 94 H 18 140/73 99 01/08/19 17:31 98.2 F 92 H 18 172/95 100 01/08/19 17:27 98.2 F 95 H 18 183/97 100 01/08/19 17:01 98.2 F 96 H 18 150/86 100 01/08/19 16:31 98.2 F 96 H 18 150/86 100 01/08/19 16:01 98.2 F 93 H 18 165/85 96 01/08/19 15:31 98.2 F 91 H 18 175/88 92 01/08/19 15:16 98.4 F 97 H 18 166/81 95 01/08/19 14:43 90 158/76 01/08/19 14:16 91 H 158/76 100 01/08/19 12:50 89 135/70 01/08/19 12:36 99.1 F 116 H 18 127/89 97 01/08/19 12:27 98.1 F 89 18 135/70 100 01/08/19 12:00 92 H 18 01/08/19 10:35 95 H 167/72 01/08/19 08:09 97.9 F 95 H 18 167/72 100 01/08/19 04:40 97.8 F 97 H 20 161/87 99 01/08/19 04:00 95 H 01/07/19 23:40 98.5 F 103 H 16 142/81 100 01/07/19 20:31 99 H - Labs and Meds CBC 01/08/19 Range/Units 09:21 WBC 7.4 (4.5-11.0) K/mm3 RBC 2.66 L (3.65-5.03) M/mm3 Hgb 6.7 L (10.1-14.3) gm/dl Hct 20.3 L (30.3-42.9) % Plt Count 273 (140-440) K/mm3 Lymph # 3.0 (1.2-5.4) K/mm3 [place] # 0.6 (0.0-0.8) K/mm3 Eos # 0.2 (0.0-0.4) K/mm3 Baso # 0.0 (0.0-0.1) K/mm3 Comprehensive Metabolic Panel 01/08/19 Range/Units 10:55 Sodium 138 (137-145) mmol/L Potassium 3.5 L (3.6-5.0) mmol/L Chloride 105.1 (98-107) mmol/L Carbon Dioxide 23 (22-30) mmol/L BUN 30 H (7-17) mg/dL Creatinine 2.4 H (0.7-1.2) mg/dL Glucose 225 H (65-100) mg/dL Calcium 7.5 L (8.4-10.2) mg/dL
[2019-01-08 10:04] LABS: Basophils % (Auto) 0.4 % (0.0-1.8); Eosinophils # (Auto) 0.2 K/mm3 (0.0-0.4); Eosinophils % (Auto) 2.2 % (0.0-4.3); Hematocrit 20.3 % (30.3-42.9); Hemoglobin 6.7 gm/dl (10.1-14.3); Lymphocytes % (Auto) 40.4 % (13.4-35.0); Mean Corpuscular HGB Conc 33 % (30-34); Mean Corpuscular Volume 76 fl (79-97); Monocytes # (Auto) 0.6 K/mm3 (0.0-0.8); Monocytes % (Auto) 8.5 % (0.0-7.3); Platelet Count 273 K/mm3 (140-440); Red Blood Count 2.66 M/mm3 (3.65-5.03); Red Cell Distribution Width 16.3 % (13.2-15.2)
[2019-01-08] MEDS: PANTOPRAZOLE 40 MG TAB PO SCH (10:35)
[2019-01-08] MEDS: CARVEDILOL 3.125 MG TAB PO SCH ×2 (10:35→21:58)
[2019-01-08] MEDS: ASPIRIN EC 325 MG TAB PO SCH (10:35)
[2019-01-08] MEDS: INSULIN REGULAR, HUMAN 100 UNITS/1 ML SUB-Q SCH ×4 (10:36→22:00)
[2019-01-08 11:30] LABS: Calcium 7.5 mg/dL (8.4-10.2)
[2019-01-08] MEDS: MORPHINE 2 MG/1 ML INJ IV PRN (11:43)
[2019-01-08] MEDS: amLODIPine 10 MG TAB PO SCH (12:50)
[2019-01-08] MEDS: hydrALAZINE 25 MG TAB PO SCH ×2 (14:43→21:59)
[2019-01-08] MEDS ORDERED: ACETAMINOPHEN 325 MG TAB PO PRN (18:41)
[2019-01-08 19:44] LABS: Bacteria,Urine 1+ /HPF (Negative); Bilirubin,Urine NEG (Negative); Blood,Urine NEG (Negative); Color,Urine Yellow (Yellow); Mucus,Urine FEW /HPF; Urobilinogen,Urine < 2.0 mg/dL (<2.0)
[2019-01-08 19:46] LABS: Protein,Urine >500 mg/dL (Negative)
[2019-01-08] MEDS: ZOLPIDEM 5 MG TAB PO PRN (21:59)
[2019-01-08] MEDS: INSULIN GLARGINE 100 UNITS/ML SUB-Q SCH (22:00)
[2019-01-09 05:21] LABS: Alanine Aminotransferase 8 units/L (7-56); Albumin 1.7 g/dL (3.9-5); BUN/Creatinine Ratio 15; Blood Urea Nitrogen 32 mg/dL (7-17); Calcium 7.2 mg/dL (8.4-10.2); Hemolysis Index 2
[2019-01-09] MEDS: hydrALAZINE 25 MG TAB PO SCH (05:49)
[2019-01-09] MEDS: amLODIPine 10 MG TAB PO SCH (10:01)
[2019-01-09] MEDS: CARVEDILOL 3.125 MG TAB PO SCH (10:02)
[2019-01-09] MEDS: INSULIN REGULAR, HUMAN 100 UNITS/1 ML SUB-Q SCH ×3 (10:03→17:15)
[2019-01-09] MEDS: ASPIRIN EC 325 MG TAB PO SCH (10:03)
[2019-01-09] MEDS: PANTOPRAZOLE 40 MG TAB PO SCH (10:03)
--- NOTE | 2019-01-09 10:03 | Consultation ---
History of Present Illness - Reason for Consult Consult date: 01/09/19 acute renal failure - History of Present Illness The patient is a 48 YO AAF with history significant for Obesity, DM type 2 (31 yrs), Hypertension, Hyperlipidemia, Diabetic retinopathy and L foot drop who presented to [facility] ED with complaint of palpitations and worsening bilateral leg swelling. Per patient the leg swelling started about 2 years, mostly intermittent but for the past 2 months the leg swelling is persistent. Patient was recently admitted at a hospital in [place] for similar problem. She was told that her kidney function is reduced. Due to lack of health insurance her diabetes is mostly not well controlled. Patient admits decreased vision with floaters. Initial BP was around 220/100. Labs significant for creat 2, blood sugar 453, Hb 7.2 and Troponin 0.16. Nephrology was consulted for further evaluation. Past History Past Medical History: diabetes, hypertension, hyperlipidemia, renal failure Medications and Allergies Allergies Allergy/AdvReac Type Severity Reaction Status Date / Time Penicillins Allergy Rash Verified 03/21/18 12:20 Home Medications Medication Instructions Recorded Confirmed Last Taken Type Aspirin EC [Halfprin EC] 81 mg PO QDAY #30 tablet. 01/09/19 Unknown Rx AtorvaSTATin [Lipitor] 20 mg PO QHS #30 01/09/19 Unknown Rx Carvedilol [Coreg] 6.25 mg PO BID #60 01/09/19 Unknown Rx Insulin Glargine,Hum.rec.anlog 25 unit SQ HS 30 Days 01/09/19 01/08/19 Unknown Rx [Basaglar Kwikpen U-100] Sitagliptin Phosphate [Januvia] 100 mg PO DAILY #30 01/09/19 Unknown Rx amLODIPine 10 mg PO QDAY #30 tablet 01/09/19 Unknown Rx hydrALAZINE [Apresoline TAB] 50 mg PO BID #60 01/09/19 Unknown Rx Active Meds: Active Medications Acetaminophen (Tylenol) 650 mg PO Q4H PRN PRN Reason: Pain, Mild (1-3) Amlodipine Besylate (Amlodipine) 10 mg PO QDAY [facility] Last Admin: 01/09/19 10:01 Dose: 10 mg Documented by: Aspirin (Ecotrin) 325 mg PO QDAY [facility] Last Admin: 01/09/19 10:03 Dose: 325 mg Documented by: Atorvastatin Calcium (Lipitor) 80 mg PO QHS [facility] Last Admin: 01/08/19 21:58 Dose: 80 mg Documented by: Carvedilol (Coreg) 6.25 mg PO BID [facility] Last Admin: 01/09/19 10:02 Dose: 6.25 mg Documented by: Hydralazine HCl (Apresoline) 20 mg IV Q4HR PRN PRN Reason: SBP >160 Hydralazine HCl (Apresoline) 50 mg PO Q8HR [facility] Last Admin: 01/09/19 05:49 Dose: 50 mg Documented by: Insulin Glargine (Lantus) 20 units SUB-Q [facility] Last Admin: 01/08/19 22:00 Dose: 20 units Documented by: Insulin Human Regular (Humulin R) 0 units SUB-Q [facility]; Protocol Last Admin: 01/08/19 22:00 Dose: 3 units Documented by: Morphine Sulfate (Morphine) 2 mg IV Q5MIN PRN PRN Reason: Chest Pain unrelieved by NTG Last Admin: 01/08/19 11:43 Dose: 2 mg Documented by: Pantoprazole Sodium (Protonix) 40 mg PO QDAY [facility] Last Admin: 01/09/19 10:03 Dose: 40 mg Documented by: Sodium Chloride (Sodium Chloride Flush Syringe 10 Ml) 10 ml IV PRN PRN PRN Reason: LINE FLUSH Zolpidem Tartrate (Ambien) 5 mg PO QHS PRN PRN Reason: Sleep Last Admin: 01/08/19 21:59 Dose: 5 mg Documented by: Review of Systems Constitutional: no weight loss, no weight gain, no fever, no chills, no anorexia, no fatigue, no weakness Breasts: deferred Cardiovascular: edema, high blood pressure, leg edema, no chest pain, no orthopnea, no syncope, no lightheadedness, no shortness of breath, no dyspnea on exertion Respiratory: no cough, no hemoptysis, no shortness of breath, no dyspnea on exertion Gastrointestinal: no abdominal pain, no nausea, no vomiting, no diarrhea, no melena, no jaundice Genitourinary Female: no dysuria, no hematuria Rectal: no bleeding Musculoskeletal: no morning stiffness, no muscle weakness Integumentary: no rash, no sores, no wounds, no jaundice Neurological: paralysis (L foot drop), no convulsions, no aphasia, no change in speech, no confusion, no memory loss Exam - Vital Signs Vital signs: Vital Signs Temp Pulse Resp BP Pulse Ox 99.0 F 105 H 17 189/90 100 01/07/19 04:01 01/07/19 04:01 01/07/19 04:01 01/07/19 04:01 01/07/19 04:01 - General Appearance General appearance: well-developed, well-nourished, appears stated age, obese, other (no distress) EENT: ATNC, PERRL, mucous membranes moist, hearing intact, vision intact Neck: Present: neck supple, trachea midline Respiratory: Clear to Ascultation Heart: regular, S1S2, no murmurs Gastrointestinal: Present: normoactive bowel sounds. Absent: tenderness, distended Integumentary: no rash, warm and dry Neurologic: no asterixis, alert and oriented x3, other (L foot drop) Musculoskeletal: Present: other (1+ edema of both LEs noted) Psychiatric: cooperative Results - Lab Results 01/09/19 12:55 01/09/19 04:45 Most recent lab results Calcium 7.2 mg/dL (8.4-10.2) L 01/09/19 04:45 Phosphorus 4.10 mg/dL (2.5-4.5) 01/09/19 04:45 Magnesium 1.90 mg/dL (1.7-2.3) 01/09/19 04:45 Urine Sodium 49 mmol/L 01/08/19 19:00 Assessment and Plan 1. CASSY vs CKD stage 3: Patient with renal insufficiency in the setting of poorly controlled DM and HTN. Likely CKD stage 3 due to diabetic nephropathy. Her renal function remains stable during this admission. Renal US negative for any hydronephrosis. Monitor renal function. Avoid nephrotoxic agents. Meds dosage based on GFR. 2. Nephrotic range proteinuria: 2/2 diabetic nephropathy. 3. FEN: Volume overload, diuretics as needed. Monitor lytes. 4. Acute on chronic HFpEF. 5. Uncontrolled HTN: BP is improving. 6. Anemia. 7. Compliance encouraged.
--- NOTE | 2019-01-09 10:44 | Progress Note ---
Assessment and Plan 1. Acute systolic heart failure secondary to fluid overload 2. Chronic kidney disease stage III 3. Type 2 diabetes mellitus 4. Essential hypertension 5. Severe anemia Echocardiogram shows normal global and regional left ventricular ejection fraction. Heart failure precipitated by renal failure and fluid overload Plan. Cardiac-florence stable. Continue present management Subjective Date of service: 01/09/19 Interval history: No cardiac symptoms. Objective Vital Signs Temp Pulse Resp BP Pulse Ox 01/09/19 10:02 93 H 141/82 01/09/19 10:01 93 H 141/82 01/09/19 08:04 98.4 F 93 H 18 141/82 98 01/09/19 08:02 18 01/09/19 04:10 98.4 F 01/09/19 04:08 95 H 18 111/71 100 01/09/19 04:00 100 H 01/09/19 00:00 18 01/08/19 23:37 98.1 F 01/08/19 23:36 95 H 18 156/86 100 01/08/19 20:00 100 H 01/08/19 19:40 98.5 F 01/08/19 19:39 94 H 18 140/73 99 01/08/19 17:31 98.2 F 92 H 18 172/95 100 01/08/19 17:27 98.2 F 95 H 18 183/97 100 01/08/19 17:01 98.2 F 96 H 18 150/86 100 01/08/19 16:31 98.2 F 96 H 18 150/86 100 01/08/19 16:01 98.2 F 93 H 18 165/85 96 01/08/19 15:31 98.2 F 91 H 18 175/88 92 01/08/19 15:16 98.4 F 97 H 18 166/81 95 01/08/19 14:43 90 158/76 01/08/19 14:16 91 H 158/76 100 01/08/19 12:50 89 135/70 01/08/19 12:36 99.1 F 116 H 18 127/89 97 01/08/19 12:27 98.1 F 89 18 135/70 100 01/08/19 12:00 92 H 18 - Physical Examination General: No Apparent Distress HEENT: Positive: PERRL Neck: Positive: trachea midline Cardiac: Positive: Regular Rate, S1/S2, PMI, Laterally Displaced. Negative: S3, S4 Lungs: Positive: clear to auscultation, No Wheeze, Rales, Rhonchi Neuro: Positive: Grossly Intact Extremities: Present: edema - Labs and Meds Cardiac Enzymes 01/09/19 Range/Units 04:45 AST 11 (5-40) units/L Comprehensive Metabolic Panel 01/08/19 01/09/19 Range/Units 10:55 04:45 Sodium 138 136 L (137-145) mmol/L Potassium 3.5 L 3.8 (3.6-5.0) mmol/L Chloride 105.1 104.1 (98-107) mmol/L Carbon Dioxide 23 23 (22-30) mmol/L BUN 30 H 32 H (7-17) mg/dL Creatinine 2.4 H 2.2 H (0.7-1.2) mg/dL Glucose 225 H 271 H (65-100) mg/dL Calcium 7.5 L 7.2 L (8.4-10.2) mg/dL AST 11 (5-40) units/L ALT 8 (7-56) units/L Alkaline Phosphatase 68 (35-129) units/L Total Protein 3.9 L (6.3-8.2) g/dL Albumin 1.7 L (3.9-5) g/dL
--- NOTE | 2019-01-09 12:13 | Progress Note ---
Assessment and Plan Possible acute CHF exacerbation Acute on chronic blood loss anemia CASSY on CKD Accelerated HTN Subjective Date of service: 01/08/19 Objective - Constitutional Vitals: Vital Signs - 12hr 01/09/19 01/09/19 01/09/19 04:00 04:08 04:10 Temperature 98.4 F Pulse Rate 100 H 95 H Respiratory 18 Rate Blood Pressure 111/71 O2 Sat by Pulse 100 Oximetry 01/09/19 01/09/19 01/09/19 08:02 08:04 10:01 Temperature 98.4 F Pulse Rate 93 H 93 H Respiratory 18 18 Rate Blood Pressure 141/82 141/82 O2 Sat by Pulse 98 Oximetry 01/09/19 10:02 Temperature Pulse Rate 93 H Respiratory Rate Blood Pressure 141/82 O2 Sat by Pulse Oximetry - Labs CBC & Chem 7: 01/09/19 12:55 01/09/19 04:45 Labs: Abnormal lab results 01/08/19 01/08/19 01/08/19 Range/Units 09:21 12:38 16:56 Sodium (137-145) mmol/L BUN (7-17) mg/dL Creatinine (0.7-1.2) mg/dL Glucose (65-100) mg/dL POC Glucose 276 H 324 H (70-105) Calcium (8.4-10.2) mg/dL Total Creatine Kinase (30-135) units/L Total Protein (6.3-8.2) g/dL Albumin (3.9-5) g/dL U Epithel Cells (Auto) (0-13.0) /HPF Crossmatch See Detail 01/08/19 01/08/19 01/09/19 Range/Units 19:00 21:31 04:45 Sodium 136 L (137-145) mmol/L BUN 32 H (7-17) mg/dL Creatinine 2.2 H (0.7-1.2) mg/dL Glucose 271 H (65-100) mg/dL POC Glucose 286 H (70-105) Calcium 7.2 L (8.4-10.2) mg/dL Total Creatine Kinase 308 H (30-135) units/L Total Protein 3.9 L (6.3-8.2) g/dL Albumin 1.7 L (3.9-5) g/dL U Epithel Cells (Auto) 16.0 H (0-13.0) /HPF Crossmatch 01/09/19 Range/Units 08:16 Sodium (137-145) mmol/L BUN (7-17) mg/dL Creatinine (0.7-1.2) mg/dL Glucose (65-100) mg/dL POC Glucose 244 H (70-105) Calcium (8.4-10.2) mg/dL Total Creatine Kinase (30-135) units/L Total Protein (6.3-8.2) g/dL Albumin (3.9-5) g/dL U Epithel Cells (Auto) (0-13.0) /HPF Crossmatch
[2019-01-09 12:28] LABS: Creatinine,Urine 98.6 mg/dL (0.1-20.0); Protein/Creatinine Ratio,Urine 7.97
--- NOTE | 2019-01-09 13:03 | Ultrasound Report ---
ULTRASOUND RENAL INDICATION / CLINICAL INFORMATION: Acute renal failure.. COMPARISON: None available. FINDINGS: RIGHT KIDNEY: Length = 11.6 cm. [normal > 9 cm] - Parenchymal Thickness = 2.0 cm by my measurements. [normal > 1.5 cm] - Echogenicity: Normal. - Hydronephrosis: None. - Cyst or mass: No significant abnormality. - Stones: None seen. LEFT KIDNEY: Length = 1.7 cm. [normal > 9 cm] - Parenchymal Thickness = 1.8 cm by my measurements. [normal > 1.5 cm] - Echogenicity: Normal. - Hydronephrosis: None. - Cyst or mass: No significant abnormality. - Stones: None seen. URINARY BLADDER: Collapsed. FREE FLUID: None. ADDITIONAL FINDINGS: None. IMPRESSION: 1. No significant abnormality. Signer Name: Paul Ochoa MD Signed: 01/09/2019 12:58 PM Workstation Name: [id number]
[2019-01-09 14:34] LABS: Hematocrit 24.8 % (30.3-42.9); Hemoglobin 8.1 gm/dl (10.1-14.3); Mean Corpuscular HGB Conc 33 % (30-34); Mean Corpuscular Volume 78 fl (79-97); Platelet Count 275 K/mm3 (140-440); Red Blood Count 3.18 M/mm3 (3.65-5.03); Red Cell Distribution Width 15.6 % (13.2-15.2)
--- NOTE | 2019-01-09 15:38 | Discharge Summary ---
Providers - Providers Date of Admission: 01/08/19 14:28 Date of discharge: 01/09/19 Attending physician: ANDREA RAMOS 01/07/19 Consult to Cardiac Rehabilitation [CONS] Routine Reason For Exam: Phase I 01/07/19 10:26 Consult to Cardiology [CONS] Routine Consulting Provider: RAMSEY RODRIGUEZ Reason For Exam: CP, elevated troponin 01/08/19 12:00 Consult to Physician [CONS] Routine Comment: Consulting Provider: JUAN PÉREZ Physician Instructions: Reason For Exam: CASSY on CKD Primary care physician: [employer] Hospitalization Condition: Stable Hospital course: Discharge diagnosis: 1. Acute systolic heart failure secondary to fluid overload 2. Chronic kidney disease stage III 3. Type 2 diabetes mellitus 4. Accelerated hypertension 5. Severe anemia due to chronic blood loss 6. Menorrhagia, outpt f/u Disposition: DC-01 TO HOME OR SELFCARE Time spent for discharge: 34 minutes Core Measure Documentation - Palliative Care Palliative Care/ Comfort Measures: Not Applicable - Core Measures Any of the following diagnoses?: none Exam - Constitutional Vitals: Temp Pulse Resp BP Pulse Ox 97.8 F 91 H 18 138/69 100 01/09/19 12:13 01/09/19 12:13 01/09/19 12:13 01/09/19 12:13 01/09/19 12:13 General appearance: Present: no acute distress, obese - EENT Eyes: Present: PERRL ENT: hearing intact, clear oral mucosa - Neck Neck: Present: supple, normal ROM - Respiratory Respiratory effort: normal Respiratory: bilateral: CTA - Cardiovascular Heart Sounds: Present: S1 & S2. Absent: rub, click - Extremities Extremities: pulses symmetrical, No edema Peripheral Pulses: within normal limits - Abdominal General gastrointestinal: Present: soft, non-tender, non-distended, normal bowel sounds Female genitourinary: Present: normal - Integumentary Integumentary: Present: clear, warm, dry - Musculoskeletal Musculoskeletal: gait normal, strength equal bilaterally - Psychiatric Psychiatric: appropriate mood/affect, intact judgment & insight - Neurologic Neurologic: CNII-XII intact, moves all extremities Plan Activity: advance as tolerated Weight Bearing Status: Weight Bear as Tolerated Diet: diabetic Special Instructions: record daily weights, record daily BP diary, record blood sugar diary Follow up with: PRIMARY CARE, [Primary Care Provider] - 3-5 Days SARAH NASCIMENTO MD [Staff Physician] - 7 Days JUAN PÉREZ MD [Staff Physician] - 7 Days Prescriptions: AtorvaSTATin [Lipitor] 20 mg PO QHS #30 amLODIPine 10 mg PO QDAY #30 tablet hydrALAZINE [Apresoline TAB] 50 mg PO BID #60 Carvedilol [Coreg] 6.25 mg PO BID #60 Aspirin EC [Halfprin EC] 81 mg PO QDAY #30 tablet. Sitagliptin Phosphate [Januvia] 100 mg PO DAILY #30
[2019-01-09 16:39] VITALS: BP 146/74
[2019-01-09] MEDS ORDERED: hydrALAZINE 25 MG TAB PO SCH (22:00)
== END 2019-01-09 18:40 | disposition home or self-care (01) | DRG 291 ==
LOC: ED 03:58 → 4A 10:38 → OBSVTOIN 01-08 14:28
PROVIDERS: ADMIT Internal Medicine; ATTEND Internal Medicine
PROC: 30233N1 Transfusion of Nonautologous Red Blood Cells into Peripheral Vein, Percutaneous Approach (ICD-10-PCS; principal; 2019-01-08)
DX: I13.0 Hypertensive heart and chronic kidney disease with heart failure and stage 1 through stage 4 chronic kidney disease, or unspecified chronic kidney disease (principal); I50.43 Acute on chronic combined systolic (congestive) and diastolic (congestive) heart failure; N17.9 Acute kidney failure, unspecified; I16.0 Hypertensive urgency; N92.0 Excessive and frequent menstruation with regular cycle; E78.00 Pure hypercholesterolemia, unspecified; E11.22 Type 2 diabetes mellitus with diabetic chronic kidney disease; R07.89 Other chest pain; N18.3 Chronic kidney disease, stage 3 (moderate); Z98.51 Tubal ligation status; Z79.4 Long term (current) use of insulin; Z82.49 Family history of ischemic heart disease and other diseases of the circulatory system; Z83.3 Family history of diabetes mellitus; Z88.0 Allergy status to penicillin; Z79.82 Long term (current) use of aspirin; Z91.19 Patient's noncompliance with other medical treatment and regimen
CPT/HCPCS: 36415; 36430; 71045; 76770; 78582; 80048; 80053; 80061; 81001; 82550; 82570; 82805; 82962; 83735; 83880; 84100; 84156; 84300; 84443; 84484; 85025; 85027; 85379; 86850; 86900; 86901; 86920; 89050; 93005; 93010; 93306; 96372; 96374; 96375; G0378; A9270-GY; A9540; A9558; J0360; J1815; J2270; J7040; P9016